=== PATIENT | female | born 1995 | race American Indian/Alaskan Native ===

== ENCOUNTER 2017-02-21 10:41 | Outpatient (CLI) | payer OTHER ==
[2017-02-21 11:03] VITALS: BP 117/63
[2017-02-21] MEDS ORDERED: LACTATED RINGERS 500 ML IV ONE (12:00)
== END 2017-02-21 11:45 | disposition home or self-care (01) ==
LOC: TRG 10:41
PROVIDERS: ATTEND Obstetrics & Gynecology
DX: O47.03 False labor before 37 completed weeks of gestation, third trimester (principal); Z3A.32 32 weeks gestation of pregnancy
CPT/HCPCS: 59025

== ENCOUNTER 2018-01-13 16:22 | Emergency (ER) | payer OTHER ==
[2018-01-13 16:36] VITALS: BP 121/73
[2018-01-13 17:28] LABS: HCG Qualitative,Urine Positive (Negative)
[2018-01-13 17:37] LABS: Bilirubin,Urine NEG (Negative); Blood,Urine NEG (Negative); Color,Urine Yellow (Yellow); Mucus,Urine 2+ /HPF
--- NOTE | 2018-01-13 20:17 | Emergency Department Report ---
ED HPI - General Chief complaint: Urogenital-Female Stated complaint: PAIN IN LOWER STOMACH Time Seen by Provider: 01/13/18 18:39 Source: patient Mode of arrival: Ambulatory Limitations: No Limitations - History of Present Illness Initial comments: This is a 22-year-old female nontoxic, well nourished in appearance, no acute signs of distress presents to the ED with c/o of intermittent pelvic cramping x4 months. Patient denies any vomiting. Patient denies chest pain, short of breath, fever, chills, headache, stiff neck, numbness or tingling. Patient denies any diarrhea or constipation. Patient denies any vaginal bleeding or discharge. Patient denies any recent travels. Patient denies any allergies or PMH. MD Complaint: abdominal pain (pelvic cramping) -: month(s) (4) Location: pelvis Radiation: none Severity: mild Severity scale (0 -10): 3 Quality: cramping Consistency: intermittent Improves with: none Worsens with: none Associated symptoms: denies other symptoms. denies: nausea/vomiting, vaginal bleeding, vaginal discharge, abdominal pain, dysuria, headache, vision changes, malaise, dysparuenia, rash, seizure, shortness of breath, syncope, weakness Vaginal bleeding: none :: Yes Pre-benigno care: none - Related Data : 2 Para: 1 Previous Rx's Medication Instructions Recorded Last Taken Type valACYclovir [Valtrex] 500 mg PO BID #30 tab 04/04/16 Unknown Rx Ferrous Sulfate [Feosol 325 MG tab] 325 mg PO BID #60 tablet 04/11/17 Unknown Rx HYDROcodone/APAP 5-325 [[place] 1 each PO Q4H PRN #30 tablet 04/11/17 Unknown Rx 5-325 mg TAB] Ibuprofen [Motrin 600 MG tab] 600 mg PO Q6HR PRN #30 tablet 04/11/17 Unknown Rx Acetaminophen 500 mg PO Q8H PRN #30 tablet 01/13/18 Unknown Rx 21/Iron Fu/Folic Acid 1 each PO DAILY #30 tablet 01/13/18 Unknown Rx [ Complete Caplet] Allergies Allergy/AdvReac Type Severity Reaction Status Date / Time No Known Allergies Allergy Verified 04/04/16 00:42 ED Review of Systems ROS: Stated complaint: PAIN IN LOWER STOMACH Other details as noted in HPI Constitutional: denies: chills, fever Eyes: denies: eye pain, eye discharge, vision change ENT: denies: ear pain, throat pain Respiratory: denies: cough, shortness of breath, wheezing Cardiovascular: denies: chest pain, palpitations Endocrine: no symptoms reported Gastrointestinal: abdominal pain (pelvic area). denies: nausea, vomiting, diarrhea Genitourinary: denies: urgency, dysuria, discharge Musculoskeletal: denies: back pain, joint swelling, arthralgia Skin: denies: rash, lesions Neurological: denies: headache, weakness, paresthesias Psychiatric: denies: anxiety, depression Hematological/Lymphatic: denies: easy bleeding, easy bruising ED Past Medical Hx - Past Medical History Previous Medical History?: No Hx Hypertension: No Hx Congestive Heart Failure: No Hx Diabetes: No Hx Deep Vein Thrombosis: No Hx Renal Disease: No Hx Sickle Cell Disease: No Hx Seizures: No Hx Asthma: No Hx COPD: No Hx HIV: No - Surgical History Past Surgical History?: Yes Additional Surgical History: vaginal delivery - Social History Smoking Status: Current Every Day Smoker Substance Use Type: None - Medications Home Medications: Home Medications Medication Instructions Recorded Confirmed Last Taken Type valACYclovir [Valtrex] 500 mg PO BID #30 tab 04/04/16 04/10/17 Unknown Rx Ferrous Sulfate [Feosol 325 MG tab] 325 mg PO BID #60 tablet 04/11/17 Unknown Rx HYDROcodone/APAP 5-325 [[place] 1 each PO Q4H PRN #30 tablet 04/11/17 Unknown Rx 5-325 mg TAB] Ibuprofen [Motrin 600 MG tab] 600 mg PO Q6HR PRN #30 tablet 04/11/17 Unknown Rx Acetaminophen 500 mg PO Q8H PRN #30 tablet 01/13/18 Unknown Rx 21/Iron Fu/Folic Acid 1 each PO DAILY #30 tablet 01/13/18 Unknown Rx [ Complete Caplet] ED Physical Exam - General Limitations: No Limitations General appearance: alert, in no apparent distress - Head Head exam: Present: atraumatic, normocephalic - Eye Eye exam: Present: normal appearance Pupils: Present: normal accommodation - ENT ENT exam: Present: normal exam, mucous membranes moist - Neck Neck exam: Present: normal inspection, full ROM. Absent: tenderness, meningismus, lymphadenopathy - Respiratory Respiratory exam: Present: normal lung sounds bilaterally. Absent: respiratory distress, wheezes, rales, rhonchi, stridor, chest wall tenderness, accessory muscle use, decreased breath sounds, prolonged expiratory - Cardiovascular Cardiovascular Exam: Present: regular rate, normal rhythm, normal heart sounds. Absent: bradycardia, tachycardia, irregular rhythm, systolic murmur, diastolic murmur, rubs, gallop - GI/Abdominal GI/Abdominal exam: Present: soft, normal bowel sounds. Absent: distended, tenderness, guarding, rebound, rigid, diminished bowel sounds - Expanded GI/Abdominal Exam Expanded GI/Abdominal exam: Absent: psoas sign, obturator sign, heel tap sign, Levin's sign, Rovsing's sign, tenderness at Mcburney's Point, ascites - Rectal Rectal exam: Present: deferred - Extremities Exam Extremities exam: Present: normal inspection, full ROM, normal capillary refill - Back Exam Back exam: Present: normal inspection, full ROM - Neurological Exam Neurological exam: Present: alert, oriented X3, normal gait - Psychiatric Psychiatric exam: Present: normal affect, normal mood - Skin Skin exam: Present: warm, dry, intact, normal color. Absent: rash ED Course Vital Signs 01/13/18 16:32 Temperature 98.5 F Pulse Rate 89 Respiratory 16 Rate Blood Pressure 121/73 O2 Sat by Pulse 100 Oximetry - Reevaluation(s) Reevaluation #1: 01/13/18 20:17 Patient is speaking in full sentences with no signs of distress noted. ED Medical Decision Making - Medical Decision Making This is a 22-year-old female that presents with pelvic pain. Patient is stable and was examined by me. There is no abdominal tenderness. Negative signs of symptoms of appendicitis. Labs obtained. UA obtained. US of OB/ Transvaginal obtained and dictated by the radiologist. Patient is notified of the report with no questions noted by the patient. Vital signs are stable prior to discharge. Patient was notified of strict precautions of appendicitis symptoms and to return to the ED if symptoms occurs as soon as possible. Patient was also instructed to Follow-up with a [facility] [facility] doctor in 3-5 days or if symptoms worsen and continue return to emergency room as soon as possible. At time of discharge, the patient does not seem toxic or ill in appearance. No acute signs of distress noted. Patient agrees to discharge treatment plan of care. No further questions noted by the patient. Critical care attestation.: If time is entered above; I have spent that time in minutes in the direct care of this critically ill patient, excluding procedure time. ED Disposition Clinical Impression: related pelvic pain in second trimester, antepartum Disposition: TO HOME OR SELFCARE Is pt being admited?: No Does the pt Need Aspirin: No Condition: Stable Instructions: (ED) Additional Instructions: Follow-up with a [employer] doctor in 3-5 days or if symptoms worsen and continue return to emergency room as soon as possible. Prescriptions: Acetaminophen 500 mg PO Q8H PRN #30 tablet PRN Reason: Pain, Moderate (4-6) 21/Iron Fu/Folic Acid [ Complete Caplet] 1 each PO DAILY #30 tablet Referrals: [facility] [Referring] - 3-5 Days MALISSA VALENTINO MD [Staff Physician] - 3-5 Days [facility] [Provider Group] - 3-5 Days [facility] [Outside] - 3-5 Days Forms: Work/School Release Form(ED)
--- NOTE | 2018-01-13 21:18 | Ultrasound Report ---
FINAL REPORT EXAM: US OB > = 14 WEEKS FETUS HISTORY: pelvic pain TECHNIQUE: Transabdominal sonography of the pelvis. PRIORS: None. FINDINGS: There is a single, live intrauterine in cephalic presentation. heart motion is detected and 4 chamber heart visualized. Placenta is located anterior and there is no evidence of previa or abruption. Cervical length 3.1 cm. Biometric data obtained and corresponds to an estimated gestational age of 21 weeks 2 days and an ultrasound estimated date of delivery of 24 May 2018. No gross anomalies are noted, including brain, heart, stomach, kidneys and urinary bladder. spine suboptimally visualized due to positioning. Amniotic fluid index is subjectively within normal limits. BPD: 4.70 cm HC: 18.60 cm AC: 16.82 cm FL: 3.73 cm Remainder of the uterus and adnexa grossly unremarkable. IMPRESSION: 1. Single, live intrauterine .
== END 2018-01-13 21:20 | disposition home or self-care (01) ==
LOC: ED 16:22
DX: O26.892 Other specified pregnancy related conditions, second trimester (principal); R10.2 Pelvic and perineal pain; F17.200 Nicotine dependence, unspecified, uncomplicated; Z3A.21 21 weeks gestation of pregnancy
CPT/HCPCS: 36415; 76805; 81001; 81025; 84702

== ENCOUNTER 2018-02-06 14:28 | Outpatient (CLI) | payer OTHER ==
[2018-02-06 14:46] VITALS: BP 118/67
[2018-02-06] MEDS ORDERED: LACTATED RINGERS 500 ML IV ONE (14:55)
[2018-02-06 16:42] LABS: BUN/Creatinine Ratio 10; Blood Urea Nitrogen 5 mg/dL (7-17); Calcium 8.7 mg/dL (8.4-10.2); Hemolysis Index 56
[2018-02-06 16:57] LABS: Hematocrit 27.3 % (30.3-42.9); Hemoglobin 9.1 gm/dl (10.1-14.3); Mean Corpuscular HGB Conc 33 % (30-34); Mean Corpuscular Hemoglobin 27 pg (28-32); Mean Corpuscular Volume 81 fl (79-97); Platelet Count 232 K/mm3 (140-440); Red Blood Count 3.37 M/mm3 (3.65-5.03); Red Cell Distribution Width 15.3 % (13.2-15.2)
[2018-02-06 17:29] LABS: Bilirubin,Urine NEG (Negative); Blood,Urine NEG (Negative); Mucus,Urine 3+ /HPF
[2018-02-06 17:30] LABS: Color,Urine Dark Yellow (Yellow)
[2018-02-06] MEDS ORDERED: LACTATED RINGERS 1,000 ML ONE (18:27)
== END 2018-02-06 19:00 | disposition home or self-care (01) ==
LOC: TRG 14:28
PROVIDERS: ATTEND Obstetrics & Gynecology
DX: O47.02 False labor before 37 completed weeks of gestation, second trimester (principal); O99.212 Obesity complicating pregnancy, second trimester; O99.332 Smoking (tobacco) complicating pregnancy, second trimester; Z3A.21 21 weeks gestation of pregnancy
CPT/HCPCS: 36415; 59025; 80048; 81001; 82962; 85027; 96360; J7120

== ENCOUNTER 2018-07-31 20:06 | Emergency (ER) | payer OTHER, MEDICAID ==
[2018-07-31 20:37] VITALS: BP 122/62
[2018-07-31 20:55] LABS: HCG Qualitative,Urine Negative (Negative)
--- NOTE | 2018-07-31 22:15 | XRay Report ---
FINAL REPORT EXAM: XR CHEST ROUTINE 2V HISTORY: Right upper chest pain TECHNIQUE: 2 views of the chest. PRIORS: None. FINDINGS: The cardiomediastinal silhouette appears normal. The lungs are clear. The bones and soft tissues are unremarkable. IMPRESSION: No evidence of acute cardiopulmonary disease
--- NOTE | 2018-07-31 22:48 | Emergency Department Report ---
ED General Adult HPI - General Chief complaint: Chest Pain Stated complaint: CHEST PAIN Time Seen by Provider: 07/31/18 22:39 Source: patient Mode of arrival: Ambulatory Limitations: No Limitations - History of Present Illness Initial comments: This is a 23-year-old -[place] female patient states she is right lateral chest wall pain 5/10 past 3 days patient states pain as sharp and exacerbated by movement and palpation , pain is relieved by rest and non- movement patient denies fall or injury or trauma , there is no sob, please dizziness or numbness or tingling no neck pain no dizziness or lightheadedness no swelling Onset/Timin -: days(s) Location: chest Radiation: non-radiation, back, extremity Severity scale (0 -10): 5 Quality: sharp Consistency: intermittent Improves with: rest Worsens with: movement Associated Symptoms: chest pain. denies: confusion, cough, diaphoresis, fev er/chills, headaches, loss of appetite, nausea/vomiting, seizure, shortness of breath, syncope, weakness Treatments Prior to Arrival: NSAID, cold therapy - Related Data Previous Rx's Medication Instructions Recorded Last Taken Type Ferrous Sulfate 325 mg PO TID #60 tablet. 05/25/18 Unknown Rx Ibuprofen [Motrin] 600 mg PO Q8H PRN #30 tablet 05/25/18 Unknown Rx oxyCODONE /ACETAMINOPHEN [Percocet 1 tab PO Q6HR PRN #30 tablet 05/25/18 Unknown Rx 5/325] Docusate Sodium [Colace] 100 mg PO BID PRN #60 capsule 05/27/18 Unknown Rx Ibuprofen 800 mg PO TID PRN #30 tablet 07/31/18 Unknown Rx Allergies Allergy/AdvReac Type Severity Reaction Status Date / Time No Known Allergies Allergy Verified 04/04/16 00:42 ED Review of Systems ROS: Stated complaint: CHEST PAIN Other details as noted in HPI Constitutional: denies: chills, fever Eyes: denies: eye pain, eye discharge, vision change ENT: denies: ear pain, throat pain Respiratory: denies: cough, shortness of breath, wheezing Cardiovascular: denies: chest pain, dyspnea on exertion, orthopnea, edema, syncope, paroxysmal nocturnal dyspnea Endocrine: no symptoms reported Gastrointestinal: constipation, hematochezia. denies: abdominal pain, nausea, vomiting, diarrhea Genitourinary: denies: urgency, dysuria, frequency, hematuria, discharge Musculoskeletal: denies: back pain, joint swelling, arthralgia Skin: denies: rash, lesions Neurological: denies: headache, weakness, paresthesias Psychiatric: anxiety. denies: homicidal thoughts, suicidal thoughts Hematological/Lymphatic: denies: easy bleeding, easy bruising ED Past Medical Hx - Past Medical History Previous Medical History?: No Hx Hypertension: No Hx Congestive Heart Failure: No Hx Diabetes: No Hx Deep Vein Thrombosis: No Hx Renal Disease: No Hx Sickle Cell Disease: No Hx Seizures: No Hx Asthma: No Hx COPD: No Hx HIV: No - Surgical History Past Surgical History?: No Additional Surgical History: vaginal delivery - Social History Smoking Status: Never Smoker Substance Use Type: None - Medications Home Medications: Home Medications Medication Instructions Recorded Confirmed Last Taken Type Ferrous Sulfate 325 mg PO TID #60 tablet.dr 05/25/18 Unknown Rx Ibuprofen [Motrin] 600 mg PO Q8H PRN #30 tablet 05/25/18 Unknown Rx oxyCODONE /ACETAMINOPHEN [Percocet 1 tab PO Q6HR PRN #30 tablet 05/25/18 Unknown Rx 5/325] Docusate Sodium [Colace] 100 mg PO BID PRN #60 capsule 05/27/18 Unknown Rx Ibuprofen 800 mg PO TID PRN #30 tablet 07/31/18 Unknown Rx ED Physical Exam - General Limitations: No Limitations General appearance: alert, in no apparent distress - Head Head exam: Present: atraumatic, normocephalic - Eye Eye exam: Present: normal appearance, PERRL, EOMI Pupils: Present: normal accommodation - ENT ENT exam: Present: normal orophraynx (normal ), mucous membranes moist, TM's normal bilaterally - Neck Neck exam: Present: normal inspection, tenderness. Absent: full ROM - Respiratory Respiratory exam: Present: normal lung sounds bilaterally. Absent: respiratory distress, wheezes, stridor, chest wall tenderness - Cardiovascular Cardiovascular Exam: Present: regular rate, normal rhythm, normal heart sounds. Absent: systolic murmur, diastolic murmur, rubs, gallop - GI/Abdominal GI/Abdominal exam: Present: soft, normal bowel sounds. Absent: distended, tenderness, bruit, pulsatile mass, hernia - Rectal Rectal exam: Present: deferred - External exam: Present: other (exam deffal ) - Extremities Exam Extremities exam: Present: normal inspection - Back Exam Back exam: Present: normal inspection, full ROM, tenderness, rash noted. Absent: CVA tenderness (R), CVA tenderness (L), muscle spasm - Neurological Exam Neurological exam: Present: alert, oriented X3, CN II-XII intact, normal gait, reflexes normal. Absent: motor sensory deficit - Psychiatric Psychiatric exam: Present: normal affect, normal mood - Skin Skin exam: Present: warm, dry, intact, normal color. Absent: rash ED Course Vital Signs 07/31/18 20:33 Temperature 98.7 F Pulse Rate 82 Respiratory 16 Rate Blood Pressure 122/62 O2 Sat by Pulse 100 Oximetry ED Medical Decision Making - Lab Data Labs 07/31/18 20:45 Urine HCG, Qual Negative - EKG Data EKG shows normal: sinus rhythm Rate: normal - EKG Data When compared to previous EKG there are: no significant change, changes noted, previous EKG unavailable Interpretation: normal EKG (ekg interp by ed attending nsr no st elevation ) - Radiology Data Radiology results: report reviewed, image reviewed interpreted by me: FINAL REPORT EXAM: XR CHEST ROUTINE 2V HISTORY: Right upper chest pain TECHNIQUE: 2 views of the chest. PRIORS: None. FINDINGS: The cardiomediastinal silhouette appears normal. The lungs are clear. The bones and soft tissues are unremarkable. IMPRESSION: No evidence of acute cardiopulmonary disease Transcribed By: SHANI Dictated By: PRITI MELENDREZ MD Electronically Authenticated By: PRITI MELENDREZ MD Signed Date/Time: 07/31/182214 DD/ 12 TD/TT: 07/31/182212 FINAL REPORT EXAM: XR CHEST ROUTINE 2V HISTORY: Right upper chest pain TECHNIQUE: 2 views of the chest. PRIORS: None. FINDINGS: The cardiomediastinal silhouette appears normal. The lungs are clear. The bones and soft tissues are unremarkable. IMPRESSION: No evidence of acute cardiopulmonary disease Transcribed By: SHANI Dictated By: PRITI MELENDREZ MD Electronically Authenticated By: PRITI MELENDREZ MD Signed Date/Time: 07/31/182214 DD/ 12 TD/TT: 07/31/182212 - Medical Decision Making Imaging EKG is normal sinus rhythm heart rate 70 there is no ectopy no ST elevation chest x-ray is normal infiltration opacities there are i no fevers no chills, there is no resp distress no sob, PERC PE: score: 0 Critical care attestation.: If time is entered above; I have spent that time in minutes in the direct care of this critically ill patient, excluding procedure time. ED Disposition Clinical Impression: Chest wall pain Disposition: TO HOME OR SELFCARE Is pt being admited?: No Does the pt Need Aspirin: No Condition: Stable Instructions: Chest Pain (ED), Costochondritis (ED) Prescriptions: Ibuprofen 800 mg PO TID PRN #30 tablet PRN Reason: Pain , Severe (7-10) Referrals: ESTEFANIA AVENDAÑO MD [Primary Care Provider] - 3-5 Days Forms: Work/School Release Form(ED) Time of Disposition: 23:02
== END 2018-07-31 23:56 | disposition home or self-care (01) ==
LOC: ED 20:06
DX: R07.89 Other chest pain (principal)
CPT/HCPCS: 71046; 81025; 93005; 93010; 99283

== ENCOUNTER 2018-12-11 16:06 | Emergency (ER) | payer OTHER, MEDICAID ==
[2018-12-11 16:16] VITALS: BP 134/68
--- NOTE | 2018-12-11 16:53 | Emergency Department Report ---
Blank Doc - Documentation Documentation: reports that she think that she is . Last period 06/2018. Passing clots and sharp abdominal pain. Goes to [facility]. Changed pad 2x/today Denies fever or chils, No concern for STD. denies N/V Labs
[2018-12-11 17:25] LABS: Basophils # (Auto) 0.1 K/mm3 (0.0-0.1); Basophils % (Auto) 0.9 % (0.0-1.8); Eosinophils # (Auto) 0.3 K/mm3 (0.0-0.4); Eosinophils % (Auto) 3.6 % (0.0-4.3); Mean Corpuscular HGB Conc 30 % (30-34); Monocytes # (Auto) 0.6 K/mm3 (0.0-0.8); Monocytes % (Auto) 7.9 % (0.0-7.3); Platelet Count 329 K/mm3 (140-440); Red Blood Count 4.61 M/mm3 (3.65-5.03)
[2018-12-11 17:29] LABS: Hematocrit 30.1 % (30.3-42.9); Hemoglobin 8.9 gm/dl (10.1-14.3); Mean Corpuscular Volume 65 fl (79-97)
[2018-12-11 17:30] LABS: Red Cell Distribution Width 21.5 % (13.2-15.2)
[2018-12-11 17:45] LABS: Bilirubin,Urine NEG (Negative); Blood,Urine LG (Negative); Color,Urine Red (Yellow); Mucus,Urine 3+ /HPF; Urobilinogen,Urine < 2.0 mg/dL (<2.0)
[2018-12-11 17:45] LABS: BUN/Creatinine Ratio 17; Blood Urea Nitrogen 12 mg/dL (7-17); Calcium 9.5 mg/dL (8.4-10.2); Hemolysis Index 4
[2018-12-11 17:48] LABS: HCG Qualitative,Urine Negative (Negative)
[2018-12-11 17:49] LABS: RBC,Urine > 182.0 /HPF (0.0-6.0)
== END 2018-12-11 19:23 | disposition left against medical advice (07) ==
LOC: ED 16:06
DX: N93.9 Abnormal uterine and vaginal bleeding, unspecified (principal); R10.9 Unspecified abdominal pain; Z53.21 Procedure and treatment not carried out due to patient leaving prior to being seen by health care provider
CPT/HCPCS: 36415; 80048; 81001; 81025; 85025; 87086

== ENCOUNTER 2020-11-23 16:11 | Outpatient (CLI) | payer MEDICAID, OTHER ==
[2020-11-23 16:57] VITALS: BP 119/62
[2020-11-23] MEDS ORDERED: LACTATED RINGERS 500 ML IV ONE (17:30)
== END 2020-11-23 18:03 | disposition home or self-care (01) ==
LOC: TRG 16:11 → APU 16:11 → TRG 18:03
PROVIDERS: ATTEND Obstetrics & Gynecology
DX: Z34.92 Encounter for supervision of normal pregnancy, unspecified, second trimester (principal); Z3A.24 24 weeks gestation of pregnancy
CPT/HCPCS: 59025

== ENCOUNTER 2021-06-20 06:32 | Day surgery (SDC) | payer MEDICAID ==
--- NOTE | 2021-06-20 07:18 | Short Stay Summary ---
Short Stay Documentation Date of service: 06/20/21 Narrative H&P: 26-year-old -0-0-3 with a history of undesired fertility. The patient is aware of other contraceptive options and has elected to undergo permanent sterilization. - History Principal diagnosis: Unwanted fertility Past Medical History: No medical history Past Surgical History: No surgical history Social history: no significant social history - Allergies and Medications Current Medications: Allergies No Known Allergies Allergy (Verified 06/19/21 16:03) Home Medications Medication Instructions Recorded Confirmed Last Taken Type No Known Home Medications [No 06/19/21 06/19/21 Unknown History Reported Home Medications] - Physical exam General appearance: no acute distress Integumentary: no rash HEENT: Atraumatic Lungs: Clear to auscultation Breasts: deferred Heart: Regular rate Gastrointestinal: normal Female Genitourinary: deferred Rectal Exam: deferred - Brief post op/procedure progress note Date of procedure: 06/20/21 Pre-op diagnosis: Unwanted fertility Post-op diagnosis: same Procedure: Laparoscopy Bilateral salpingectomy Anesthesia: GETA Surgeon: GABRIEL THAO Estimated blood loss: minimal Pathology: list (Bilateral fallopian tubes) Specimen disposition: to lab Condition: stable - Hospital course Hospital course: The patient was admitted the day of surgery underwent a laparoscopic bilateral tubal ligation. Please see operative note for details of surgery. Her postoperative course was uneventful. - Disposition Condition at discharge: Good Disposition: 01 HOME / SELF CARE / HOMELESS Short Stay Discharge Plan Activity: other (Pelvic rest for 1 week) Diet: regular Additional Instructions: Follow-up is not required Follow-up as needed Prescriptions: Ibuprofen [Motrin] 800 mg PO Q8HR PRN #30 tablet PRN Reason: Pain , Severe (7-10) HYDROcodone/APAP 5-325 [Bessie 5/325] 1 each PO Q6HR PRN #15 tablet PRN Reason: Pain
[2021-06-20 07:20] LABS: Mean Corpuscular HGB Conc 30 % (30-34); Mean Corpuscular Volume 78 fl (79-97); Platelet Count 256 K/mm3 (140-440); Red Blood Count 4.37 M/mm3 (3.65-5.03)
[2021-06-20 07:36] LABS: Hemoglobin 10.2 gm/dl (10.1-14.3)
[2021-06-20] MEDS ORDERED: BUPIVACAINE/PF (0.5%) 5 MG/1 ML 30 ML VIAL INFILTRATI ONE (08:56)
[2021-06-20] MEDS ORDERED: BUPIVACAINE/PF (0.5%) 5 MG/1 ML 10 ML VIAL INFILTRATI ONE ×2 (09:09→10:42)
[2021-06-20] MEDS ORDERED: propofoL 200 MG/20 ML VIAL IV ONE (09:13)
[2021-06-20] MEDS ORDERED: ROCURONIUM 50 MG/5 ML INJ IV ONE (09:13)
[2021-06-20] MEDS ORDERED: LIDOCAINE MPF (2%) 20 MG/1 ML VIAL 5 ML ONE (09:13)
[2021-06-20] MEDS ORDERED: ONDANSETRON 4 MG/2 ML INJ ONE (09:13)
[2021-06-20] MEDS ORDERED: fentaNYL 100 MCG/2 ML INJ ONE (09:14)
[2021-06-20] MEDS ORDERED: LACTATED RINGERS 1,000 ML ONE (09:20)
[2021-06-20] MEDS ORDERED: HYDROmorphone 1 MG/1 ML INJ IV PRN (09:27)
[2021-06-20] MEDS ORDERED: ACETAMINOPHEN 500 MG TAB PO ONE (09:27)
[2021-06-20] MEDS ORDERED: MAGNESIUM OXIDE 400 MG TAB PO ONE (09:27)
[2021-06-20] MEDS ORDERED: ONDANSETRON 4 MG/2 ML INJ IV PRN (09:27)
--- NOTE | 2021-06-20 09:27 | Anesthesia Day of Surgery ---
Anesthesia Day of Surgery - Day of Surgery Patient Examined: Yes Patient H&P Reviewed: Yes Patient is NPO: Yes
--- NOTE | 2021-06-20 09:29 | Anesthesia Consultation ---
Anesthesia Consult and Med Hx - Airway Anesthetic Teeth Evaluation: Good ROM Head & Neck: Adequate Mental/Hyoid Distance: Adequate Mallampati Class: Class II Intubation Access Assessment: Good - Pre-Operative Health Status ASA Pre-Surgery Classification: ASA2 Proposed Anesthetic Plan: General - Pulmonary Hx Smoking: Yes Hx Asthma: No COPD: No Hx Pneumonia: No - Cardiovascular System Hx Hypertension: No - Central Nervous System Hx Seizures: No Hx Psychiatric Problems: No - Endocrine Hx Renal Disease: No Hx End Stage Renal Disease: No Hx Hypothyroidism: No Hx Hyperthyroidism: No - Hematic Hx Anemia: Yes Hx Sickle Cell Disease: No - Other Systems Hx Alcohol Use: No Hx Cancer: No Hx Obesity: Yes
[2021-06-20] MEDS ORDERED: LACTATED RINGERS 1,000 ML IV SCH (09:30)
[2021-06-20] MEDS ORDERED: CELECOXIB 200 MG CAP PO NR (10:00)
[2021-06-20] MEDS ORDERED: MIDAZOLAM 2 MG/2 ML INJ IV NR (10:00)
[2021-06-20] MEDS ORDERED: dexAMETHasone 20 MG/5 ML VIAL ONE (11:11)
[2021-06-20] MEDS ORDERED: GLYCOPYRROLATE 0.4 MG/2 ML INJ ONE (11:11)
[2021-06-20] MEDS ORDERED: NEOSTIGMINE 10MG/10 ML INJ MDV ONE (11:11)
--- NOTE | 2021-06-20 11:14 | Operative Report ---
Operative Report Operative Report: Date of surgery: June 20, 2021 Preoperative diagnosis: Unwanted fertility Postoperative diagnosis: Same as above Procedure: Laparoscopy; Bilateral salpingectomy Surgeon: Britt Santos M.D. Anesthesia: General endotracheal anesthesia Estimated blood loss: Minimal Pathology: Bilateral fallopian tubes Findings: Normal uterus tubes and ovaries Indication: 26-year-old -0-0-3 with undesired fertility Procedure: The patient was taken to the operating room and given general endotracheal anesthesia without complication. The patient is prepped and draped in a normal sterile fashion. A bivalve speculum was placed in the patient's vagina and a single-tooth tenaculum was placed on the anterior lip of the cervix .A uterine acorn manipulator was placed, and the bivalve speculum was then removed. Attention was then turned to the patient's abdomen where a 5 mm infraumbilical skin incision was then made. A Veress needle was placed and peritoneal entry was verified water-filled syringe. Insufflation of the peritoneal cavity was performed with CO2 gas. A 5 mm trocar was placed and the laparoscope was then inserted. The patient was then placed in Trendelenburg. A 7 mm suprapubic skin incision was then made. Under direct visualization a 7 mm trocar was then placed. An additional 5 mm left lateral trocar was also placed. General survey of the patient's abdomen revealed normal uterus tubes and ovaries. The fallopian tube was then followed out to the fimbriated end. The LigaSure device was used in order to coagulate and transect the mesosalpinx. The fallopian tube was excised from the adnexa. The fallopian tube was removed through the 7 mm trocar. This was performed on the contralateral side as well. The trocars were then removed. The pneumoperitoneum was then released. The 5 mm trocar laparoscope was then removed. The skin incisions were then closed w ith 4-0 Monocryl. The incisions were injected with quarter percent Marcaine. Dressings were applied to the incision. The vaginal instruments were then removed atraumatically. Then successfully extubated and taken to the recovery room. All sponge laps and needle counts were correct x2.
[2021-06-20] MEDS: HYDROmorphone 1 MG/1 ML INJ IV PRN ×2 (11:29→11:48)
[2021-06-20 13:46] VITALS: BP 108/60
--- NOTE | 2021-06-20 16:54 | Post Anesthesia Evaluation ---
- Post Anesthesia Evaluation Patient Participated: Yes Airway Patent: Yes Stable Respiratory Function: Yes Nausea/Vomiting: No Temp > 96.8F: Yes Pain Manageable: Yes Adequeate Hydration: Yes Anesthesia Complications: No Block Receding Appropriately: Not Applicable Patient on Ventilator: No
== END 2021-06-20 12:30 | disposition home or self-care (01) ==
LOC: OR 06:32
PROVIDERS: ATTEND Obstetrics & Gynecology
DX: Z30.2 Encounter for sterilization (principal); D50.8 Other iron deficiency anemias; E66.9 Obesity, unspecified; F17.210 Nicotine dependence, cigarettes, uncomplicated; Z79.899 Other long term (current) drug therapy; Z98.890 Other specified postprocedural states; Z82.49 Family history of ischemic heart disease and other diseases of the circulatory system; Z20.822 Contact with and (suspected) exposure to COVID-19
CPT/HCPCS: 36415; 58661; 81025; 85027; 88302; J1100; J1170; J1815; J2405; J2704; J2710; J3010; J3490; J7120; U0003